=== PATIENT | male | born 2000 | race Caucasian/White ===

== ENCOUNTER 2020-10-23 11:35 | Emergency (ER) | payer OTHER ==
[2020-10-23 11:54] VITALS: TEMP 98.1
[2020-10-23] MEDS ORDERED: LIDOCAINE 1% INJ 10MG/ML (20 ML MDV) SQ ONE (12:07)
--- NOTE | 2020-10-23 13:05 | ED ---
Skin/Abscess/FB HPI - General Chief complaint: Skin/Abscess/Foreign Body Stated complaint: Bump on L thigh Time Seen by Provider: 10/23/20 11:59 Source: patient, RN notes reviewed Mode of arrival: ambulatory Limitations: no limitations - History of Present Illness Initial comments: 20-year-old male that presents to emergency room complaining of a left upper thigh abscess and some erythema. He notes that he had a small pimple that her popped it and it got red and swollen and more tender. He notes that he was concerned and his mom told to come to ER to get it drained it looked at. He denied any other issues or complaints at this time. He noted his pain was very minimal and did not want any pain medication as time. He denied any history of abscesses. He notes he was ordered for MRSA. He denied any chest pain first breath headache nausea vomiting diarrhea comes patient fever fatigue chills. - Related Data Previous Rx's Medication Instructions Recorded Sulfamethox-Tmp 800-160Mg [Bactrim 1 each PO Q12HR #20 tab 10/23/20 Ds] Allergies Allergy/AdvReac Type Severity Reaction Status Date / Time No Known Allergies Allergy Verified 10/23/20 11:50 Review of Systems ROS Statement: Those systems with pertinent positive or pertinent negative responses have been documented in the HPI. ROS Other: All systems not noted in ROS Statement are negative. Past Medical History Past Medical History: No Reported History History of Any Multi-Drug Resistant Organisms: None Reported Past Surgical History: Orthopedic Surgery Additional Past Surgical History / Comment(s): eye surgeries Past Psychological History: No Psychological Hx Reported Smoking Status: Vaper Past Alcohol Use History: None Reported Past Drug Use History: None Reported General Exam Limitations: no limitations General appearance: alert, in no apparent distress Head exam: Present: atraumatic, normocephalic, normal inspection Eye exam: Present: normal appearance, PERRL, EOMI. Absent: scleral icterus, conjunctival injection, periorbital swelling Neck exam: Present: normal inspection Respiratory exam: Present: normal lung sounds bilaterally. Absent: respiratory distress, wheezes, rales, rhonchi, stridor Cardiovascular Exam: Present: regular rate, normal rhythm, normal heart sounds. Absent: systolic murmur, diastolic murmur, rubs, gallop, clicks GI/Abdominal exam: Present: soft, normal bowel sounds. Absent: distended, tenderness, guarding, rebound, rigid Extremities exam: Present: normal inspection, full ROM, normal capillary refill. Absent: tenderness, pedal edema, joint swelling, calf tenderness Neurological exam: Present: alert, oriented X3 Psychiatric exam: Present: normal affect, normal mood Skin exam: Present: warm, dry, intact, normal color. Absent: rash Expanded Type of lesion: Present: abscess (Left upper thigh, measuring approximately 4 cm x 3 cm with erythema surrounding it.) Course Vital Signs 10/23/20 10/23/20 11:50 12:54 Temperature 98.1 F Pulse Rate 99 Respiratory 18 20 Rate Blood Pressure 119/68 O2 Sat by Pulse 97 Oximetry Procedures - [place] Protocol (Time Out) Procedure Performed:: d&c Performing Provider: Terence Elena Patient Identification (2 identifiers required): Chart, Verbal, Arm Band, Name Patient/Legal Crown Pouncer has Confirmed: Identity, Site - Incision & Drainage Consent Obtained: verbal consent Site: lower extremity (Left upper thigh anterior) Size (cm): 4 Anesthetic Used: lidocaine 1% Amount (mLs): 8 I&D Cleaning Method: Chloroprep Sterile Field Used?: Yes Scalpel Used: #11 Needle Aspiration Performed?: No Irrigation Performed?: Yes I&D Drainage Obtained: Pus (Minimal), Blood Culture Obtained?: Yes Patient Tolerated Procedure: well, no complications Medical Decision Making - Medical Decision Making 20-year-old complaining of a left upper thigh abscess. Lidocaine ordered for incision and drainage. Patient tolerated well. Area was cleaned with ChloraPrep a small incision was made over the fluctuant area abscess was squeezed and then explored using hemostats and flushed using normal saline flushes. Wound culture obtained. Case discussed with Dr. Ozuna, patient can discharge home. Disposition Clinical Impression: Abscess of left thigh, Cellulitis Disposition: HOME SELF-CARE Condition: Stable Instructions (If sedation given, give patient instructions): Abscess Incision and Drainage (DC) Additional Instructions: Please return to the Emergency Department if symptoms worsen or any other concerns. Follow-up with primary care 1-2 days. Taken antibiotics as prescribed. Prescriptions: Sulfamethox-Tmp 800-160Mg [Bactrim Ds] 1 each PO Q12HR #20 tab Is patient prescribed a controlled substance at d/c from ED?: No Referrals: None,Stated [Primary Care Provider] - 1-2 days Time of Disposition: 13:14
[2020-10-23 13:56] VITALS: RESP 18
[2020-10-23 13:57] VITALS: BP 131/82; PULSE 90
== END 2020-10-23 13:57 | disposition home or self-care (01) ==
LOC: EC 11:35
DX: L02.416 Cutaneous abscess of left lower limb (principal); L03.116 Cellulitis of left lower limb; F17.290 Nicotine dependence, other tobacco product, uncomplicated
CPT/HCPCS: 87070; 87205; 10060; 99283; J2001